=== PATIENT | female | born 1995 | race Caucasian/White ===

== ENCOUNTER 2017-06-27 10:08 | Emergency (ER) | payer OTHER ==
--- NOTE | 2017-06-27 10:29 | ER Document Report ---
ED Medical Screen (RME) - General TRAVEL OUTSIDE OF THE [place] IN LAST 30 DAYS: No - General Chief Complaint: Abdominal Pain Stated Complaint: ABDOMINAL PAIN Time Seen by Provider: 06/27/17 10:19 Notes: Patient is a 21 year old female presenting to the ED for abdominal pain that started in the left lower quadrant which then moved into the right lower quadrant and then moved into the right upper quadrant. Patient states she has had nausea for 2-3 days. Patient denies any vaginal discharge, pain with urination, vomiting, diarrhea, or fevers. Patient has a history of POTS and states that when she was 15 or 16 she had an ovarian cyst rupture which was similar to her pain today however she is not having vaginal bleeding like she did during the previous episode. (NIKIA BLAKE) - Related Data Allergies/Adverse Reactions: divalproex sodium [From Depakote] Allergy (Verified 06/27/17 10:13) Penicillins Allergy (Verified 06/27/17 10:11) triptons Allergy (Uncoded 06/27/17 10:13) Past Medical History - Social History Cigarette use (# per day): Yes Chew tobacco use (# tins/day): No Frequency of alcohol use: None Drug Abuse: Marijuana Renal/ Medical History: Denies: Hx Peritoneal Dialysis Physical Exam - Vital signs Vitals: Temp Pulse Resp BP Pulse Ox 97.8 F 110 H 16 118/76 100 06/27/17 10:11 06/27/17 10:11 06/27/17 10:11 06/27/17 10:11 06/27/17 10:11 - Notes Notes: GENERAL: Alert, interacts well. No acute distress. LUNGS: Clear to auscultation bilaterally, no wheezes, rales, or rhonchi. No respiratory distress. HEART: Regular rate and rhythm. No murmurs, gallops, or rubs. ABDOMEN: Soft, LLQ and right lateral tenderness with palpation when in a seated position. Non-distended. Bowel sounds present in all 4 quadrants. NEUROLOGICAL: Alert and oriented x3. Normal speech. (NIKIA BLAKE) - Vital Signs Vital signs: Temp Pulse Resp BP Pulse Ox 97.8 F 110 H 16 118/76 100 06/27/17 10:11 06/27/17 10:11 06/27/17 10:11 06/27/17 10:11 06/27/17 10:11 Scribe Documentation - Scribe Written by Scribe:: Clari eMlgoza 06/27/17 10:30 acting as scribe for :: Kathy
[2017-06-27 11:05] LABS: ABSOLUTE LYMPHOCYTES (AUTO) 2.2 10^3/uL (0.5-4.7); ABSOLUTE NEUT (AUTO) 8.9 10^3/uL (1.7-8.2); BASOPHILS % (AUTO) 0.3 % (0-2); EOSINOPHILS % (AUTO) 0.3 % (0-6); HEMATOCRIT 41.7 % (36.0-47.0); HEMOGLOBIN 14.2 g/dL (12.0-15.5); HGB HCT DIFFERENCE 0.9; LYMPHOCYTES % (AUTO) 18.2 % (13-45); MEAN CORPUSCULAR HEMOGLOBIN 30.4 pg (27.0-33.4); MEAN CORPUSCULAR HGB CONC 34.1 g/dL (32.0-36.0); MEAN CORPUSCULAR VOLUME 89 fl (80-97); MONOCYTES % (AUTO) 8.2 % (3-13); RED BLOOD COUNT 4.68 10^6/uL (3.72-5.28); RED CELL DISTRIBUTION WIDTH 13.4 % (11.5-14.0); WHITE BLOOD COUNT 12.2 10^3/uL (4.0-10.5)
[2017-06-27] MEDS ORDERED: ONDANSETRON 4 MG TAB.RAPDIS PO ONE (11:14)
--- NOTE | 2017-06-27 11:19 | ER Document Report ---
HPI - HPI Pain Level: 5 Notes: Patient is a 21-year-old female who presents the ED complaining of bilateral lower abdomen/pelvic pain that began this morning. Patient is a the pain began on the left side and moved to the right and now is bilaterally. The pain is described as sharp without any radiation of her pain. She still urinating normally and having normal bowel movements the last bowel movement this morning. Patient states that she has had nausea over the last 3 days as well. Patient states that she is sexually active with a male partner currently and they do not use protection nor she on any control. Pt states she is 5 days late for her menstrual period. She denies any vaginal odor or discharge. Patient is still eating and drinking without any difficulties or changes in her symptoms. Denies any headache, fever, head injury, neck pain, URI, sore throat , chest pain, palpitations, syncope, cough, shortness of breath, wheeze, dyspnea , vomiting/diarrhea, urinary retention, dysuria, hematuria, melena, hematochezia , back pain, loss of control of bowel or bladder, numbness/tingling, saddle anesthesia, muscle paralysis/weakness, or rash. Pt is allergic to PCN's, triptans, and depakote. PMH of POTS. + smoking, denies IV drug use. + weed. - ROS Notes: REVIEW OF SYSTEMS: CONSTITUTIONAL : Denies fever, chills, or sweats. Denies recent illness. EENT: Denies eye, ear, throat, or mouth pain or symptoms. Denies nasal or sinus congestion or discharge. Denies throat, tongue, or mouth swelling or difficulty swallowing. CARDIOVASCULAR: Denies chest pain. Denies palpitations or racing or irregular heart beat. Denies ankle edema. RESPIRATORY: Denies cough, cold, or chest congestion. Denies shortness of breath, difficulty breathing, or wheezing. GASTROINTESTINAL: see hpi GENITOURINARY: Denies difficulty urinating, painful urination, burning, frequency, blood in urine, or discharge. FEMALE GENITOURINARY: Denies vaginal bleeding, heavy or abnormal periods, irregular periods. Denies vaginal discharge or odor. MUSCULOSKELETAL: Denies back or neck pain or stiffness. Denies joint pain or swelling. SKIN: Denies rash, lesions or sores. NEUROLOGICAL: Denies confusion or altered mental status. Denies passing out or loss of consciousness. Denies dizziness or lightheadedness. Denies headache. Denies weakness or paralysis or loss of use of either side. Denies problems with gait or speech. Denies sensory loss, numbness, or tingling. Denies seizures. PSYCHIATRIC: Denies anxiety or stress. Denies depression, suicidal ideation, or homicidal ideation. ALL OTHER SYSTEMS REVIEWED AND NEGATIVE. Dictation was performed using [employer] voice recognition software - CARDIOVASCULAR Cardiovascular: DENIES: Chest pain - DERM Skin Color: Normal Past Medical History - Social History Smoking Status: Current Every Day Smoker Cigarette use (# per day): Yes Chew tobacco use (# tins/day): No Frequency of alcohol use: None Drug Abuse: Marijuana Family History: Reviewed & Not Pertinent Patient has suicidal ideation: No Patient has homicidal ideation: No Renal/ Medical History: Denies: Hx Peritoneal Dialysis Vertical Provider Document - CONSTITUTIONAL Agree With Documented VS: Yes Notes: PHYSICAL EXAMINATION: GENERAL: Well-appearing, well-nourished and in no acute distress. HEAD: Atraumatic, normocephalic. EYES: Pupils equal round and reactive to light, extraocular movements intact, conjunctiva are normal. ENT: Nares patent, oropharynx clear without exudates. Moist mucous membranes. EAC's clear bilaterally. TMs intact bilaterally without erythema fluid or perforation. No tonsillar hypertrophy or erythema. No sinus tenderness. NECK: Normal range of motion, supple without lymphadenopathy LUNGS: Breath sounds clear to auscultation bilaterally and equal. No wheezes rales or rhonchi. HEART: Regular rate and rhythm without murmurs ABDOMEN: Soft, nondistended abdomen. No guarding, no rebound. No masses appreciated. Normal bowel sounds present. CVA tenderness negative bilaterally. + minimally tender to the pelvic b/l. No tenderness at McBurney' s point. Psoas/obturator/rosving's negative. Percussion neg. Female : No inguinal adenopathy. External genitalia without erythema, lesions , or masses. Vaginal mucosa pink, scant white discharge in canal. Cervix parous, pink, and without discharge. Uterus is smooth. No adnexal tenderness. Musculoskeletal: LE's b/l: FROM to passive/active. Strength 5+/5. Extremities: No cyanosis/clubbing/edema b/l. Peripheral pulses 2+. Capillary refill less than 3 seconds. NEUROLOGICAL: Normal speech, normal gait. Normal sensory, motor exams PSYCH: Normal mood, normal affect. SKIN: Warm, Dry, normal turgor, no rashes or lesions noted. - INFECTION CONTROL TRAVEL OUTSIDE OF THE [place] IN LAST 30 DAYS: No - RESPIRATORY O2 Sat by Pulse Oximetry: 100 Course - Re-evaluation Re-evalutation: 06/27/17 13:[address] Chavez who is in agreement with discharge/plan. Patient is an afebrile, well-hydrated, 21-year-old female who presents the ED with abdominal/pelvic pain not otherwise specified. Vitals are stable. PE otherwise unremarkable at this time with minimal to no tenderness in her abdomen /pelvic area. CBC showed a mildly elevated white count without any shift. CMP , urinalysis, urine , wet mount, chlamydia/gonorrhea all unremarkable for acute pathology. Transvaginal ultrasound was unremarkable for any acute pathology aside from noted rt 'simple ovarian cyst.' Patient is tolerating p.o. intake and is feeling a little bit better than when she arrived. We will discharge in stable condition with close monitoring of symptoms and strict return precautions. Low suspicion/risk for acute appendicitis, bowel obstruction, acute cholecystitis, acute cholangitis, perforated diverticulitis, incarcerated hernia, pancreatitis, perforated ulcer, peritonitis, sepsis, pelvic inflammatory disease, ectopic , tubo-ovarian abscess, ovarian torsion, or other systemic emergent condition at this time. Patient is aware that her condition can change from initial presentation and she needs to monitor symptoms closely and seek medical attention if any acute changes. Conservative measures otherwise for symptoms. Recheck with OBGYN in 1-2 days. Recheck with your PCM in 2-3 days. Consider consult with a vertical punch operator. Return to the ED with any worsening/concerning symptoms otherwise as reviewed in discharge. Patient is in agreement. - Vital Signs Vital signs: Temp Pulse Resp BP Pulse Ox 97.8 F 110 H 16 118/76 100 06/27/17 10:11 06/27/17 10:11 06/27/17 10:11 06/27/17 10:11 06/27/17 10:11 - Laboratory Result Diagrams: 06/27/17 10:40 06/27/17 10:40 Laboratory results interpreted by me: 06/27/17 10:40 WBC 12.2 H Absolute Neutrophils 8.9 H Procedures - Pelvic Exam Pelvic exam Time completed: 11:30 Cultures obtained: Yes Wet prep obtained: Yes Herpes culture obtained: No Bimanual exam performed: Yes - neg Witnessed by: [place] Ca Discharge - Discharge Clinical Impression: Pelvic pain Condition: Stable Disposition: HOME, SELF-CARE Instructions: Abdominal Pain ([facility]), Observation for Appendicitis ([facility]), Pelvic Pain ([facility]), Warm Packs ([facility]), Follow-Up Care ([facility]) Additional Instructions: Maintain adequate fluid and food intake Tylenol/ibuprofen as needed Warm packs may help along with ice packs Monitor for any acute changes in symptoms Recheck with your PCM in 2-3 days Recheck with the REMARKETING REP in 1-2 days Consider consult with gastroenterology Return to the ED with any worsening symptoms and/or development of fever, headache, chest pain, palpitations, syncope, shortness of breath, trouble breathing, worsening abdominal/pelvic pain, n/v/d, blood in stool/urine, vaginal discharge/odor, flank pain, loss of control of bowel/bladder, urinary retention, muscle weakness/paralysis, or other worsening symptoms that are concerning to you. Forms: Smoking Cessation Education Referrals: ROBERT BANSAL FNP-C [Primary Care Provider] - 06/30/17 [facility] [Provider Group] - 06/30/17 KAREN VALLE MD [ACTIVE STAFF] - Follow up as needed
[2017-06-27 11:24] LABS: ALANINE AMINOTRANSFERASE 19 U/L (9-52); ALBUMIN 4.5 g/dL (3.5-5.0); ALKALINE PHOSPHATASE 78 U/L (38-126); ANION GAP 11 (5-19); ASPARTATE AMINO TRANSFERASE 17 U/L (14-36); BILIRUBIN,DIRECT 0.3 mg/dL (0.0-0.4); BILIRUBIN,TOTAL 1.4 mg/dL (0.2-1.3); BLOOD UREA NITROGEN 11 mg/dL (7-20); CALCIUM 10.1 mg/dL (8.4-10.2); CARBON DIOXIDE 27 mmol/L (22-30); CHLORIDE 101 mmol/L (98-107); CREATININE RESULT 0.73 mg/dL (0.52-1.25); GLUCOSE 110 mg/dL (75-110); POTASSIUM 4.4 mmol/L (3.6-5.0); SODIUM 138.7 mmol/L (137-145); TOTAL PROTEIN 7.5 g/dL (6.3-8.2)
[2017-06-27 12:06] LABS: APPEARANCE,URINE CLEAR; BILIRUBIN,URINE NEGATIVE (NEGATIVE); GLUCOSE, URINE NEGATIVE (NEGATIVE); KETONES,URINE NEGATIVE (NEGATIVE); LEUKOCYTE ESTERASE,URINE NEGATIVE (NEGATIVE); NITRITE,URINE NEGATIVE (NEGATIVE); PROTEIN,URINE NEGATIVE (NEGATIVE); URINE SPECIFIC GRAVITY 1.009; UROBILINOGEN,URINE NEGATIVE mg/dL (<2.0)
[2017-06-27 13:14] LABS: CHLAM PCR NOT DETECTED (NOT DETECT)
--- NOTE | 2017-06-27 13:34 | RADIOLOGY REPORT (SQ) ---
EXAM DESCRIPTION: U/S NON OB PEL TV W/DOPPLER COMPLETED DATE/TIME: 06/27/2017 1:11 pm REASON FOR STUDY: pelvic pain COMPARISON: None. TECHNIQUE: Dynamic and static grayscale images acquired of the pelvis via transvaginal approach and recorded on PACS. Additional selected color Doppler and spectral images recorded. LIMITATIONS: None. FINDINGS: UTERUS: Contour normal. No mass. Uterus is 6.4 x 4.8 x 3.7 cm size ENDOMETRIAL STRIPE: No focal or generalized thickening. No masses. 7 mm in thickness CERVIX: No nabothian cysts. RIGHT OVARY: Right ovary is 3.9 x 3.9 x 2.3 cm size with a 2.8 x 2.3 cm simple cyst. RIGHT OVARY DOPPLER: Normal arterial vascular flow without evidence for torsion. LEFT OVARY: No abnormal masses. Left ovary 3.3 x 3 x 1.6 cm size. LEFT OVARY DOPPLER: Normal arterial vascular flow without evidence for torsion. FREE FLUID: Physiologic pelvic cul-de-sac fluid OTHER: No other significant finding. IMPRESSION: ESSENTIALLY NORMAL TRANSVAGINAL PELVIC ULTRASOUND. TECHNICAL DOCUMENTATION: JOB ID: [id number] All Rights Reserved
[2017-06-27 14:05] VITALS: BP 120/75
== END 2017-06-27 14:05 | disposition home or self-care (01) ==
LOC: ER 10:08
DX: R10.2 Pelvic and perineal pain (principal); R11.0 Nausea; D72.829 Elevated white blood cell count, unspecified; F17.210 Nicotine dependence, cigarettes, uncomplicated
CPT/HCPCS: 99284; 36415; 87210; 85025; 81025; 80053; 81001; 87491; 87591; 76830; 93976; S0119